=== PATIENT | male | born 1960 | race Caucasian/White ===

== ENCOUNTER → 2016-11-02 | Day surgery (SDC) | payer MEDICARE ==
[~2016-11-02] VITALS: Ht 180.3 cm; Wt 106.1 kg
== END ==
LOC: OPS 09:23
PROC: 0DJD8ZZ Inspection of Lower Intestinal Tract, Via Natural or Artificial Opening Endoscopic (ICD-10-PCS; principal; 2016-11-02)
DX: R19.5 Other fecal abnormalities (principal); Z86.010 Personal history of colon polyps; F41.9 Anxiety disorder, unspecified; M19.90 Unspecified osteoarthritis, unspecified site; N40.1 Benign prostatic hyperplasia with lower urinary tract symptoms; N39.43 Post-void dribbling; G89.29 Other chronic pain; M54.5 Low back pain; E78.5 Hyperlipidemia, unspecified; G43.909 Migraine, unspecified, not intractable, without status migrainosus; M54.2 Cervicalgia; Z87.11 Personal history of peptic ulcer disease
CPT/HCPCS: 45378; 99070; J2704